=== PATIENT | male | born 1945 | race Caucasian/White ===

== ENCOUNTER 2018-03-17 00:29 | Observation (INO) | payer OTHER ==
[~2018-03-17] VITALS: Ht 167.6 cm; Wt 83.6 kg
[2018-03-17 02:35] LABS: BASOPHIL (%) 0.6 % (0-1); BASOPHIL COUNT 0.1 K/uL (0-0.1); EOSINOPHIL COUNT 1.1 K/uL (0-0.3); HEMATOCRIT 44.6 % (38.0-50.0); HEMOGLOBIN 15.3 G/DL (12.5-16.6); IMMATURE GRANULOCYTE (%) 0.2 % (0.0-0.7); LYMPHOCYTE (%) 27.7 % (15-42); LYMPHOCYTE COUNT 2.8 K/uL (1.0-2.8); MCHC 34.3 G/DL (30.0-36.0); MCV 93.3 FL (86-99); MONOCYTE (%) 11.8 % (3-12); MONOCYTE COUNT 1.2 K/uL (0-0.8); NEUTROPHIL (%) 48.7 % (45-76); PLATELET COUNT 234 K/uL (156-360); RBC DIS.WIDTH-CV 13.6 % (11.8-14.6); RBC DIS.WIDTH-SD 47.2 % (39-53); RED BLOOD COUNT 4.78 M/uL (4.00-5.50); WHITE BLOOD COUNT 10.2 K/uL (4.1-10.2)
[2018-03-17 02:45] LABS: PTT 26.9 SEC (25-37)
[2018-03-17 02:46] LABS: CHLORIDE 107 mEq/L (99-109); POTASSIUM 4.4 mEq/L (3.7-5.4); SODIUM 140 mEq/L (136-147)
[2018-03-17 02:47] LABS: MAGNESIUM 2.6 mg/dL (1.3-2.7)
[2018-03-17 02:48] LABS: GLUCOSE 110 mg/dL (70-99)
[2018-03-17 02:52] LABS: CREATININE 1.1 mg/dL (0.6-1.3); GFR ESTIMATE (CALCULATED) > 59 mL/min/ (58.99-99999); UREA NITROGEN (BUN) 21 mg/dL (9-23)
[2018-03-17 03:04] LABS: TROP-I INTERPRETATION NEGATIVE; TROPONIN-I < 0.01 ng/mL (0.0-0.30)
[2018-03-17] MEDS ORDERED: ASPIR 8181 M1 PO (05:42)
[2018-03-17] MEDS ORDERED: FLUTICASONE PRO16 GM BOTH NARES (05:43)
[2018-03-17] MEDS ORDERED: ATORVASTATIN CA80 MG PO (05:43)
[2018-03-17] MEDS ORDERED: OMEPRAZOLE20 M2 PO (05:43)
[2018-03-17] MEDS ORDERED: LISINOPRIL2.5 MG PO (05:43)
[2018-03-17] MEDS ORDERED: METOPROLOL TART25 MG PO (05:44)
[2018-03-17] MEDS ORDERED: ALBUTEROL2.5 MG/3 M IH (05:45)
[2018-03-17] MEDS ORDERED: FISH OIL 1,0001 EAC7 PO (05:45)
[2018-03-17] MEDS ORDERED: MULTIVITAMIN1 EAC2 PO (05:46)
[2018-03-17] MEDS ORDERED: FLOVENT 22120 INHALA IH (07:40)
[2018-03-17 08:55] LABS: TROP-I INTERPRETATION NEGATIVE; TROPONIN-I < 0.01 ng/mL (0.0-0.30)
[2018-03-17 09:24] VITALS: BP 99/61
[2018-03-17 11:45] VITALS: BP 121/83
[2018-03-17 15:00] LABS: TROP-I INTERPRETATION NEGATIVE; TROPONIN-I 0.01 ng/mL (0.0-0.30)
[2018-03-17 15:51] VITALS: BP 128/60
[2018-03-17] MEDS ORDERED: ELIQUIS5 MG PO (18:23)
== END 2018-03-17 18:44 | disposition home or self-care (01) ==
LOC: EME 00:29 → EDOF 08:05 → ENRESERV 08:06 → 4SOUTH 09:11
PROVIDERS: Emergency Medicine; Nurse Practitioner Family
DX: I48.91 Unspecified atrial fibrillation (principal); I25.10 Atherosclerotic heart disease of native coronary artery without angina pectoris; I25.84 Coronary atherosclerosis due to calcified coronary lesion; I25.2 Old myocardial infarction; Z86.74 Personal history of sudden cardiac arrest; Z95.5 Presence of coronary angioplasty implant and graft; I10 Essential (primary) hypertension; R91.8 Other nonspecific abnormal finding of lung field; E78.5 Hyperlipidemia, unspecified; K21.9 Gastro-esophageal reflux disease without esophagitis; J45.909 Unspecified asthma, uncomplicated; C85.10 Unspecified B-cell lymphoma, unspecified site; Z82.49 Family history of ischemic heart disease and other diseases of the circulatory system; I51.7 Cardiomegaly; Z79.82 Long term (current) use of aspirin
CPT/HCPCS: 71045; 71275; 80048; 83735; 84443; 84484; 85025; 85379; 85610; 85730; 93005; 93306; 94640; 99202; 99281; 99285; G0378; J1650

== ENCOUNTER 2018-04-23 03:38 | Observation (INO) | payer OTHER ==
[~2018-04-23] VITALS: Ht 170.2 cm; Wt 82.3 kg
[~2018-04-23 03:38] MED LIST: ALBUTEROL2.5 MG/3 M IH; ASPIR 8181 M1 PO; ATORVASTATIN CA80 MG PO; ELIQUIS5 MG PO; FISH OIL 1,0001 EAC7 PO; FLOVENT 22120 INHALA IH; FLUTICASONE PRO16 GM BOTH NARES; LISINOPRIL2.5 MG PO; METOPROLOL TART25 MG PO; MULTIVITAMIN1 EAC2 PO; OMEPRAZOLE20 M2 PO
[2018-04-23 04:18] LABS: HEMOGLOBIN 14.6 G/DL (12.5-16.6); MCH 32.3 PG (29.0-34.0); MCHC 34.8 G/DL (30.0-36.0); MCV 92.9 FL (86-99); PLATELET COUNT 235 K/uL (156-360); RBC DIS.WIDTH-CV 13.4 % (11.8-14.6); RBC DIS.WIDTH-SD 45.6 % (39-53); RED BLOOD COUNT 4.52 M/uL (4.00-5.50); WHITE BLOOD COUNT 8.2 K/uL (4.1-10.2)
[2018-04-23 04:32] LABS: CHLORIDE 107 mEq/L (99-109); POTASSIUM 4.2 mEq/L (3.7-5.4); SODIUM 140 mEq/L (136-147)
[2018-04-23 04:34] LABS: GLUCOSE 100 mg/dL (70-99)
[2018-04-23 04:38] LABS: GFR ESTIMATE (CALCULATED) > 59 mL/min/ (58.99-99999)
[2018-04-23 04:39] LABS: UREA NITROGEN (BUN) 22 mg/dL (9-23)
[2018-04-23 04:46] LABS: TROP-I INTERPRETATION NEGATIVE; TROPONIN-I < 0.01 ng/mL (0.0-0.30)
[2018-04-23 07:34] VITALS: BP 163/74
[2018-04-23 08:34] VITALS: BP 161/73
[2018-04-23 12:46] LABS: TROP-I INTERPRETATION NEGATIVE; TROPONIN-I < 0.01 ng/mL (0.0-0.30)
== END 2018-04-23 13:53 | disposition home or self-care (01) ==
LOC: EME 03:38 → EDOF 05:38 → ENRESERV 05:39 → 4SOUTH 07:14 → ENPENDDIS 10:02 → 4SOUTH 13:53
PROVIDERS: Internal Medicine
DX: R07.9 Chest pain, unspecified (principal); R07.89 Other chest pain; I25.10 Atherosclerotic heart disease of native coronary artery without angina pectoris; Z95.5 Presence of coronary angioplasty implant and graft; Z86.74 Personal history of sudden cardiac arrest; I25.2 Old myocardial infarction; I48.0 Paroxysmal atrial fibrillation; E78.5 Hyperlipidemia, unspecified; I10 Essential (primary) hypertension; Z85.72 Personal history of non-Hodgkin lymphomas; Z79.01 Long term (current) use of anticoagulants; Z79.82 Long term (current) use of aspirin
CPT/HCPCS: 71046; 80048; 84484; 85027; 93005; 94640; 99281; 99285; G0378